=== PATIENT | male | born 1950 | race Caucasian/White ===

== ENCOUNTER 2017-06-12 11:46 | Inpatient (IN) | payer MEDICARE, BC ==
[2017-06-12] MEDS ORDERED: Albuterol/Ipratropium 3.0-0.5 MG/3 ML Neb Soln NEB ONE (11:53)
[2017-06-12] MEDS ORDERED: Sodium Chloride 0.9% 1,000 ML IV ONE (11:54)
[2017-06-12] MEDS ORDERED: methylPREDNISolone Sodium Succinate 125 MG/2 ML SDV IVPUSH ONE (11:54)
--- NOTE | 2017-06-12 12:34 | EDM.PDOC ---
ED HPI GENERAL MEDICAL PROBLEM - General Chief Complaint: Respiratory Problem Stated Complaint: SOB Time Seen by Provider: 06/12/17 12:05 Source of Information: Reports: Patient History Limitations: Reports: No Limitations - History of Present Illness INITIAL COMMENTS - FREE TEXT/NARRATIVE: History of present illness: [67-year-old male presenting with shortness of breath. Patient has a known history of COPD and now is short of breath with a harsh productive cough. Patient indicates that he thinks he might have pneumonia again. Patient's sats on room air are mid 80s with a increased to 92-93% on 3 L of O2] Review of systems: As per history of present illness and below otherwise all systems reviewed and negative. Past medical history: As per history of present illness and as reviewed below otherwise noncontributory. Surgical history: As per history of present illness and as reviewed below otherwise noncontributory. Social history: No reported history of drug or alcohol abuse. Family history: As per history of present illness and as reviewed below otherwise noncontributory. Physical exam: HEENT: Atraumatic, normocephalic, pupils reactive, negative for conjunctival pallor or scleral icterus, mucous membranes moist, throat clear, neck supple, nontender, trachea midline. Lungs: Lung sounds coarse bronchovesicular region and otherwise diminished throughout. Patient with a harsh productive cough of green thick tenacious sputum, otherwise chest nontender. Heart: S1S2, regular, negative for clicks, rubs, or JVD. Abdomen: Soft, nondistended, nontender. Negative for masses or hepatosplenomegaly. Negative for costovertebral tenderness. Pelvis: Stable nontender. Genitourinary: Deferred. Rectal: Deferred. Extremities: Atraumatic, negative for cords or calf pain. Neurovascular unremarkable. Neuro: Awake, alert, oriented. Cranial nerves II through XII unremarkable. Cerebellum unremarkable. Motor and sensory unremarkable throughout. Exam nonfocal. Discussed admission with Dr. Shane Mcknight patient will be admitted to inpatient status secondary to hypoxemia Diagnostics: [CBC, CMP, influenza AB, lactate, chest x-ray, the cultures 2] Therapeutics: [Levaquin 750 mg] Impression: [# 1 hypoxemia] Plan: [Admit to inpatient] Definitive disposition and diagnosis as appropriate pending reevaluation and review of above. - Related Data Allergies Allergy/AdvReac Type Severity Reaction Status Date / Time metronidazole [From Flagyl] Allergy Nausea Verified 06/12/17 11:52 Home Meds: Home Meds Ascorbic Acid [Vitamin C] 1 tab PO DAILY 04/18/14 [History] Aspirin [Halfprin] 1 tab PO DAILY 04/18/14 [History] Cholecalciferol (Vitamin D3) [Vitamin D3] 400 intnl unit PO DAILY 04/18/14 [ History] Dextrin [Fiber] 1 pack PO DAILY 04/18/14 [History] Fish Oil/DHA/EPA [Fish Oil 1,200 MG] 1 tab PO BID 04/18/14 [History] [id number] 149-Hyal [Glucosamine Chondroitin Complx] 1 tab PO DAILY 04/18/14 [History] Multivitamin [Multivitamins] 1 tab PO DAILY 04/18/14 [History] Niacin [Niacin ER] 1 tab PO DAILY 04/18/14 [History] Potassium Gluconate 1 tab PO DAILY 04/18/14 [History] Psyllium with Sucrose [Metamucil] 1 pack PO DAILY 04/18/14 [History] Red Yeast Rice 1 tab PO DAILY 04/18/14 [History] Sertraline [Zoloft] 150 mg PO DAILY 04/18/14 [History] Ubidecarenone [Co Q10] 400 mg PO DAILY 04/18/14 [History] Vitamin B Complex & Vit C No.4 [Super B Complex] 180 mg PO DAILY 04/18/14 [ History] Zinc 1 tab PO DAILY 04/18/14 [History] amLODIPine [Norvasc] 1 tab PO DAILY 04/18/14 [History] atorvaSTATin [Lipitor] 1 tab PO DAILY 04/18/14 [History] busPIRone [Buspar] 15 mg PO BID 04/18/14 [History] Clopidogrel [Plavix] 75 mg PO DAILY #30 tablet 04/19/14 [Rx] Benazepril [Lotensin] 10 mg PO BID 06/12/17 [History] Past Medical History Cardiovascular History: Reports: [place] Respiratory History: Reports: COPD Gastrointestinal History: Reports: Diverticulosis Psychiatric History: Reports: Anxiety, Depression - Infectious Disease History Infectious Disease History: Reports: Chicken Pox, Measles, Mumps - Past Surgical History Cardiovascular Surgical History: Reports: Coronary Artery Stent GI Surgical History: Reports: Appendectomy Social & Family History - Family History Family Medical History: Noncontributory - Tobacco Use Smoking Status *Q: Current Every Day Smoker Years of Tobacco use: 45 Packs/Tins Daily: 1 - Caffeine Use Caffeine Use: Reports: Coffee - Alcohol Use Days Per Week of Alcohol Use: 0 - Recreational Drug Use Recreational Drug Use: No Drug Use in Last 12 Months: No ED ROS GENERAL - Review of Systems Review Of Systems: See Below (See history of present illness) ED EXAM, GENERAL - Physical Exam Exam: See Below (See history of present illness) Course - Vital Signs Last Recorded V/S: Last Vital Signs Temp 37.0 C 06/12/17 11:47 Pulse 107 H 06/12/17 11:47 Resp 34 H 06/12/17 11:47 BP 145/70 H 06/12/17 11:47 Pulse Ox 92 L 06/12/17 11:57 - Orders/Labs/Meds Orders: Active Orders 24 hr Category Date Time Status Admission Status [Patient Status] [ADT] Stat ADT 06/12/17 13:48 Ordered RT Aerosol Therapy [RC] ASDIRECTED Care 06/12/17 11:53 Active Chest 2V [CR] Stat Exams 06/12/17 11:53 Taken CULTURE BLOOD [BC] Stat Lab 06/12/17 13:47 Ordered CULTURE BLOOD [BC] Stat Lab 06/12/17 13:47 Ordered Levofloxacin/Dextrose 5%-Water [Levaquin in D5W 750 MG/ Med 06/12/17 13:47 Ordered 150 ML] 750 mg Premix Bag 1 bag IV ONETIME Blood Culture x2 Reflex Set [OM.PC] Stat Oth 06/12/17 13:47 Ordered Medication Orders Levofloxacin/Dextrose 750 mg/ (Premix) 150 mls @ 100 mls/hr IV ONETIME ONE Stop: 06/12/17 15:16 Labs: Laboratory Tests 06/12/17 06/12/17 06/12/17 Range/Units 12:05 12:05 12:05 WBC 15.07 H (4.0-11.0) K/uL RBC 5.64 (4.50-5.90) M/uL Hgb 17.0 (13.0-17.0) g/dL Hct 52.8 H (38.0-50.0) % MCV 93.6 (80.0-98.0) fL MCH 30.1 (27.0-32.0) pg MCHC 32.2 (31.0-37.0) g/dL RDW Std Deviation 52.3 (28.0-62.0) fl RDW Coeff of Alejandro 15 (11.0-15.0) % Plt Count 173 (150-400) K/uL MPV 10.20 (7.40-12.00) fL Add Manual Diff YES Neutrophils % (Manual) 74 (48.0-80.0) % Band Neutrophils % 8 % Lymphocytes % (Manual) 7 L (16.0-40.0) % Monocytes % (Manual) 10 (0.0-15.0) % Basophils % (Manual) 1 (0.0-1.5) % Nucleated RBC % 0.0 /100WBC Absolute Seg Neuts 11.2 H (1.4-5.7) Band Neutrophils # 1.2 Lymphocytes # (Manual) 1.1 (0.6-2.4) Monocytes # (Manual) 1.5 H (0.0-0.8) Basophils # (Manual) 0.2 H (0.0-0.1) Nucleated RBCs # 0 K/uL Lactate 1.0 (0.20-2.00) mmol/L Sodium 133 L (136-146) mmol/L Potassium 4.3 (3.5-5.1) mmol/L Chloride 96 L (98-110) mmol/L Carbon Dioxide 26 (21-31) mmol/L BUN 14 (6.0-23.0) mg/dL Creatinine 0.8 (0.6-1.5) mg/dL Est Cr Clr Drug Dosing 89.06 mL/min Estimated GFR (MDRD) > 60.0 ml/min Glucose 121 H (60-110) mg/dL Calcium 9.2 (8.8-10.8) mg/dL Total Bilirubin 0.7 (0.1-1.5) mg/dL AST 20 (5-40) IU/L ALT 22 (8-54) IU/L Alkaline Phosphatase 54 (40-150) Total Protein 6.8 (6.0-8.0) g/dL Albumin 3.7 (3.4-4.8) g/dL Globulin 3.1 (2.0-3.5) g/dL Albumin/Globulin Ratio 1.2 L (1.3-2.8) Meds: Medications Generic Name Dose Route Start Last Admin Trade Name Freq PRN Reason Stop Dose Admin Levofloxacin/Dextrose 750 mg/ 150 mls @ 100 mls/hr 06/12/17 13:47 Premix IV 06/12/17 15:16 ONETIME ONE Discontinued Medications Generic Name Dose Route Start Last Admin Trade Name Freq PRN Reason Stop Dose Admin Albuterol/Ipratropium 3 ml 06/12/17 11:53 06/12/17 12:15 Duoneb 3.0-0.5 Mg/3 Ml NEB 06/12/17 11:54 3 ml ONETIME ONE Administration Sodium Chloride 1,000 mls @ 999 mls/hr 06/12/17 11:54 06/12/17 12:15 Normal Saline IV 06/12/17 12:54 999 mls/hr STAT ONE Administration Methylprednisolone Sodium Succinate 125 mg 06/12/17 11:54 06/12/17 12:15 Solu-Medrol IVPUSH 06/12/17 11:55 125 mg ONETIME ONE Administration Departure - Departure Time of Disposition: 13:51 Disposition: Admitted As Inpatient 68 Condition: Good Clinical Impression: Hypoxemia - Discharge Information Forms: ED Department Discharge - My Orders Last 24 Hours: My Active Orders 06/12/17 11:53 RT Aerosol Therapy [RC] ASDIRECTED Chest 2V [CR] Stat 06/12/17 13:47 CULTURE BLOOD [BC] Stat CULTURE BLOOD [BC] Stat Levofloxacin/Dextrose 5%-Water [Levaquin in D5W 750 MG/150 ML] 750 mg Premix Bag 1 bag IV ONETIME Blood Culture x2 Reflex Set [OM.PC] Stat 06/12/17 13:48 Admission Status [Patient Status] [ADT] Stat - Assessment/Plan Last 24 Hours: My Active Orders 06/12/17 11:53 RT Aerosol Therapy [RC] ASDIRECTED Chest 2V [CR] Stat 06/12/17 13:47 CULTURE BLOOD [BC] Stat CULTURE BLOOD [BC] Stat Levofloxacin/Dextrose 5%-Water [Levaquin in D5W 750 MG/150 ML] 750 mg Premix Bag 1 bag IV ONETIME Blood Culture x2 Reflex Set [OM.PC] Stat 06/12/17 13:48 Admission Status [Patient Status] [ADT] Stat
[2017-06-12 12:47] LABS: CHLORIDE,CL 96 mmol/L (98-110); SODIUM,NA 133 mmol/L (136-146)
[2017-06-12] MEDS ORDERED: Levofloxacin/Dextrose 5%-Water 750 MG in Premix Bag 1 BAG IV ONE (13:47)
--- NOTE | 2017-06-12 14:27 | PCM.HP ---
H&P History of Present Illness - General Date of Service: 06/12/17 Admit Problem/Dx: Hypoxia Source of Information: Patient - History of Present Illness Initial Comments - Free Text/Narative: 67-year-old male grained to emergency department with chief complaint of shortness of breath 1 week. Patient states that approximately 1 week ago he began having increased shortness of breath after working outside shoveling snow. He has had associated cough with greenish sputum production, fever, chills, and decreased appetite. States that he had similar episode 4 wks ago but this resolved some but not completely. Does report a history of COPD but does not take home medications. He sees Dr. Mascorro as his PCP. He is a long-term smoker with 45+ pack year history currently smoking 1 pack a day. Currently denies any chest pain, palpitations, syncopal episodes, focal neurologic deficits, nausea, vomiting, or diarrhea. He did not get his influenza vaccine this year. Patient has a history of coronary disease with stent placement will years ago in [place]. He is currently on Plavix and aspirin. He also has a history of hypertension and hyperlipidemia. Emergency department he was found to have leukocytosis of 15,000 normal lactate. CMP was unremarkable. Influenza was negative. Chest x-ray showed likely emphysematous changes with bilateral lower lobe bronchitis. Initially O2 sat 70% on room air improved to 91% on 4 L nasal cannula. Patient was admitted for hypoxia. - Related Data Allergies/Adverse Reactions: Allergies Allergy/AdvReac Type Severity Reaction Status Date / Time metronidazole [From Flagyl] Allergy Nausea Verified 06/12/17 11:52 Home Medications: Home Meds Ascorbic Acid [Vitamin C] 1 tab PO DAILY 04/18/14 [History] Aspirin [Halfprin] 1 tab PO DAILY 04/18/14 [History] Cholecalciferol (Vitamin D3) [Vitamin D3] 400 intnl unit PO DAILY 04/18/14 [ History] Dextrin [Fiber] 1 pack PO DAILY 04/18/14 [History] Fish Oil/DHA/EPA [Fish Oil 1,200 MG] 1 tab PO BID 04/18/14 [History] Zgrruwkr-[id number]-Xhpd 149-Hyal [Glucosamine Chondroitin Complx] 1 tab PO DAILY 04/18/14 [History] Multivitamin [Multivitamins] 1 tab PO DAILY 04/18/14 [History] Niacin [Niacin ER] 1 tab PO DAILY 04/18/14 [History] Potassium Gluconate 1 tab PO DAILY 04/18/14 [History] Psyllium with Sucrose [Metamucil] 1 pack PO DAILY 04/18/14 [History] Red Yeast Rice 1 tab PO DAILY 04/18/14 [History] Sertraline [Zoloft] 150 mg PO BEDTIME 04/18/14 [History] Ubidecarenone [Co Q10] 400 mg PO DAILY 04/18/14 [History] Vitamin B Complex & Vit C No.4 [Super B Complex] 180 mg PO DAILY 04/18/14 [ History] Zinc 1 tab PO DAILY 04/18/14 [History] amLODIPine [Norvasc] 1 tab PO DAILY 04/18/14 [History] atorvaSTATin [Lipitor] 1 tab PO DAILY 04/18/14 [History] busPIRone [Buspar] 15 mg PO BID 04/18/14 [History] Clopidogrel [Plavix] 75 mg PO DAILY #30 tablet 04/19/14 [Rx] Benazepril [Lotensin] 10 mg PO BID 06/12/17 [History] Melatonin 30 mg PO BEDTIME 06/12/17 [History] Nicotine [Nicoderm CQ] 21 mg TRDERM DAILY 06/12/17 [History] Past Medical History Cardiovascular History: Reports: [place] Respiratory History: Reports: COPD Gastrointestinal History: Reports: Diverticulosis Psychiatric History: Reports: Anxiety, Depression - Infectious Disease History Infectious Disease History: Reports: Chicken Pox, Measles, Mumps - Past Surgical History Cardiovascular Surgical History: Reports: Coronary Artery Stent GI Surgical History: Reports: Appendectomy Social & Family History - Family History Family Medical History: Noncontributory - Tobacco Use Smoking Status *Q: Current Every Day Smoker Years of Tobacco use: 45 Packs/Tins Daily: 1 - Caffeine Use Caffeine Use: Reports: Coffee - Alcohol Use Days Per Week of Alcohol Use: 0 - Recreational Drug Use Recreational Drug Use: No Drug Use in Last 12 Months: No H&P Review of Systems - Review of Systems: Review Of Systems: See Below General: Reports: Fever, Chills, Malaise, Fatigue. Denies: Diaphoresis HEENT: Denies: Dysphasia, Headaches, Sore Throat Pulmonary: Reports: Shortness of Breath, Wheezing, Cough, Sputum. Denies: Pleuritic Chest Pain, Hemoptysis Cardiovascular: Denies: Chest Pain, Palpitations, Edema Gastrointestinal: Denies: Abdominal Pain, Black Stool, Bloody Stool, Constipation, Diarrhea, Nausea, Vomiting Genitourinary: Denies: Dysuria, Hematuria Musculoskeletal: Denies: Neck Pain, Leg Pain Skin: Denies: Cyanosis Psychiatric: Denies: Confusion Neurological: Denies: Confusion, Dizziness, Headache Hematologic/Lymphatic: Denies: Anemia Exam - Exam Exam: See Below - Vital Signs Vital Signs: Last Vital Signs Temp 98.6 F 06/12/17 11:47 Pulse 107 H 06/12/17 11:47 Resp 34 H 06/12/17 11:47 BP 145/70 H 06/12/17 11:47 Pulse Ox 92 L 06/12/17 11:57 Weight: 102.6 kg - Exam Quality Assessment: Supplemental Oxygen, DVT Prophylaxis General: Alert, Oriented, Cooperative, Mild Distress HEENT: Conjunctiva Clear, EACs Clear, EOMI, Hearing Intact, Mucosa Moist & [place] , Nares Patent, Normal Nasal Septum, Posterior Pharynx Clear, PERRLA Neck: Supple, Trachea Midline, 2 Lungs: Decreased Breath Sounds, Crackles, Rhonchi, Wheezing Cardiovascular: Regular Rate, Regular Rhythm, Normal S1, Normal S2 GI/Abdominal Exam: Normal Bowel Sounds, Soft, Non-Tender, No Organomegaly, No Distention Back Exam: Normal Inspection Extremities: Normal Inspection, Normal Range of Motion, Non-Tender, No Pedal Edema, Normal Capillary Refill Peripheral Pulses: 2+: Radial (L), Radial (R), Posterior Tibial (L), Posterior Tibial (R), Dorsalis Pedis (L), Dorsalis Pedis (R) Skin: Warm, Dry, Intact Neurological: Cranial Nerves Intact Neuro Extensive - Mental Status: Alert, Oriented x3, Normal Mood/Affect, Normal Cognition Neuro Extensive - Motor, Sensory, Reflexes: CN II-XII Intact Psychiatric: Alert, Normal Affect, Normal Mood - Patient Data Result Diagrams: 06/12/17 12:05 06/12/17 12:05 *Q Meaningful Use (ADM) - VTE *Q VTE Criteria *Q: - Stroke *Q Stroke Criteria *Q: - AMI *Q AMI Criteria *Q: - Problem List (1) CAD in [place] artery SNOMED Code(s): 9303450098392 ICD Code: I25.10 - ATHSCL HEART DISEASE OF [place] CORONARY ARTERY W/O ANG PCTRS Status: Chronic Priority: Medium Current Visit: Yes (2) COPD (chronic obstructive pulmonary disease) SNOMED Code(s): 05915977 ICD Code: J44.9 - CHRONIC OBSTRUCTIVE PULMONARY DISEASE, UNSPECIFIED Status : Chronic Priority: High Current Visit: Yes Qualifiers: COPD type: unspecified COPD Qualified Code(s): J44.9 - Chronic obstructive pulmonary disease, unspecified (3) Hypertension SNOMED Code(s): 72349094 ICD Code: I10 - ESSENTIAL (PRIMARY) HYPERTENSION Status: Acute Priority: High Current Visit: Yes Qualifiers: Hypertension type: essential hypertension Qualified Code(s): I10 - Essential (primary) hypertension (4) Hypoxemia SNOMED Code(s): 536525705 ICD Code: R09.02 - HYPOXEMIA Status: Acute Priority: High Current Visit : Yes Problem List Initiated/Reviewed/Updated: Yes Orders Last 24hrs: Active Orders 24 hr Category Date Time Status CULTURE SPUTUM + SMEAR [RM] Stat Lab 06/12/17 14:12 Received Medication Orders Levofloxacin/Dextrose 750 mg/ (Premix) 150 mls @ 100 mls/hr IV ONETIME ONE Stop: 06/12/17 15:16 Last Admin: 06/12/17 14:15 Dose: 100 mls/hr Assessment/Plan Comment:: 67-year-old male admitted 06/12/17 for hypoxia with past medical history of COPD , CAD with stent on Plavix and aspirin, hypertension, hyperlipidemia. Hypoxia: Most likely multifactorial from bronchitis greater than 4 weeks and COPD. He does have leukocytosis of 15 K. Takes no steroids or any medications for his COPD. Blood cultures taken in ER. Will treat with Levaquin 750 every 24 , duo nebs every 4 hours, IV Solu-Medrol 125 mg every 6 hours. Influenza was negative. CAD with stent: Place on telemetry, continue home Plavix and aspirin. Hypertension: Stable resume home medications Hyperlipidemia: Stable resume home meds. VTE proph: Heparin, SCD Dispo: 2-[address] Mascorro PCP
--- NOTE | 2017-06-12 14:56 | CR ---
EXAM DATE: 06/12/17 PATIENT'S AGE: 67 Patient: VERONICA ARIAS Facility: [place], [place] Site . Site : 1950 Study: XRay Chest [id number] 12:57:29 PM Ordering Physician: Doctor Garza Final Report: INDICATION: Shortness of breath TECHNIQUE: Chest radiograph 2 views COMPARISON: None FINDINGS: Relative lucency to the upper lung zones, suggesting possible emphysematous changes. Mild degree of peribronchial thickening is suspected in the bilateral lower lobes. No airspace consolidation, abnormal pleural thickening, or pleural effusion. Heart and mediastinal contours are within normal limits. Prominent bilateral perihilar pulmonary vessels, suggesting possible pulmonary hypertension. IMPRESSION: 1. Likely emphysematous changes with bilateral lower lobe bronchitis. Dictated by Gurpreet Martinez MD @ 06/12/2017 1:23:58 PM Dictated by: Gurpreet Martinez MD @ 06/12/2017 13:24:06 (Electronic Signature) Report Signed by Proxy. MTDJenise
[2017-06-12] MEDS ORDERED: Ondansetron 4 MG Tab.DIS PO PRN (15:16)
[2017-06-12] MEDS ORDERED: Acetaminophen 325 MG Tab PO PRN (15:16)
[2017-06-12] MEDS ORDERED: Nicotine 7 MG/24 Hr Patch TRDERM SCH (15:30)
[2017-06-12] MEDS: Heparin Sodium 5,000 Units/ML Vial SUBCUT SCH (16:11)
[2017-06-12] MEDS: methylPREDNISolone Sodium Succinate 125 MG/2 ML SDV IV SCH (17:30)
[2017-06-12] MEDS: Albuterol/Ipratropium 3.0-0.5 MG/3 ML Neb Soln NEB PRN (17:30)
[2017-06-12] MEDS: diphenhydrAMINE 50 MG/ML SDV IVPUSH PRN (17:30)
[2017-06-12] MEDS: Benazepril 10 MG Tab PO SCH (21:02)
[2017-06-12] MEDS: Melatonin 3 MG Tab PO SCH (21:03)
[2017-06-12] MEDS: busPIRone 5 MG Tab PO SCH (21:03)
[2017-06-12] MEDS: Sertraline 50 MG Tab PO SCH (21:04)
[2017-06-12] MEDS: Niacin 500 MG Tab PO SCH (21:09)
[2017-06-13] MEDS: Heparin Sodium 5,000 Units/ML Vial SUBCUT SCH ×4 (00:10→22:54)
[2017-06-13] MEDS: methylPREDNISolone Sodium Succinate 125 MG/2 ML SDV IV SCH ×3 (00:12→12:13)
[2017-06-13] MEDS: diphenhydrAMINE 50 MG/ML SDV IVPUSH PRN ×4 (00:16→22:54)
[2017-06-13] MEDS: Albuterol/Ipratropium 3.0-0.5 MG/3 ML Neb Soln NEB PRN ×2 (00:20→07:16)
[2017-06-13 06:07] LABS: CHLORIDE,CL 98 mmol/L (98-110); SODIUM,NA 135 mmol/L (136-146)
--- NOTE | 2017-06-13 08:39 | PCM.PN ---
- General Info Date of Service: 06/13/17 Admission Dx/Problem (Free Text): Hypoxia Subjective Update: Patient states his breathing has improved significantly since yesterday. Sob, pleuritis, cough and malaise were his main complaints and all have improved. He smokes 1 ppd and has 40 pack year smoking history. He states he has history of mild copd but has never been hospitalized for it and denies any recurrent clinic visits for copd exacerbation. He does not take any inhalers at home. He denies any improvement of symptoms with nebulizer treatments. Functional Status: Reports: Pain Controlled, Tolerating Diet, Ambulating, Urinating - Review of Systems General: Reports: No Symptoms HEENT: Reports: Sore Throat Pulmonary: Reports: Shortness of Breath, Cough Cardiovascular: Reports: No Symptoms Gastrointestinal: Reports: No Symptoms Genitourinary: Reports: No Symptoms Musculoskeletal: Reports: No Symptoms Skin: Reports: No Symptoms Neurological: Reports: No Symptoms Psychiatric: Reports: No Symptoms - Patient Data Vitals - Most Recent: Last Vital Signs Temp 36.9 C 06/13/17 03:00 Pulse 70 06/13/17 03:00 Resp 18 06/13/17 03:00 BP 120/64 06/13/17 03:00 Pulse Ox 92 L 06/13/17 03:00 Weight - Most Recent: 102.6 kg I&O - Last 24 Hours: Intake & Output 06/12/17 06/13/17 06/13/17 22:59 06:59 14:59 Intake Total 0 740 Output Total 350 1150 Balance -350 -410 Lab Results Last 24 Hours: Laboratory Results - last 24 hr 06/13/17 06/13/17 Range/Units 05:23 05:23 WBC 11.75 H (4.0-11.0) K/uL RBC 5.63 (4.50-5.90) M/uL Hgb 16.8 (13.0-17.0) g/dL Hct 53.0 H (38.0-50.0) % MCV 94.1 (80.0-98.0) fL MCH 29.8 (27.0-32.0) pg MCHC 31.7 (31.0-37.0) g/dL RDW Std Deviation 52.0 (28.0-62.0) fl RDW Coeff of Alejandro 15 (11.0-15.0) % Plt Count 190 (150-400) K/uL MPV 10.90 (7.40-12.00) fL Nucleated RBC % 0.0 /100WBC Nucleated RBCs # 0 K/uL Sodium 135 L (136-146) mmol/L Potassium 5.1 (3.5-5.1) mmol/L Chloride 98 (98-110) mmol/L Carbon Dioxide 29 (21-31) mmol/L BUN 17 (6.0-23.0) mg/dL Creatinine 0.7 (0.6-1.5) mg/dL Est Cr Clr Drug Dosing 101.79 mL/min Estimated GFR (MDRD) > 60.0 ml/min Glucose 160 H (60-110) mg/dL Calcium 8.6 L (8.8-10.8) mg/dL [place] Results Last 24 Hours: Microbiology 06/12/17 14:12 Gram Stain - Preliminary Sputum - Expectorated Med Orders - Current: Current Medications Acetaminophen (Tylenol) 650 mg PO Q4H PRN PRN Reason: Pain (Mild 1-3)/fever Albuterol/Ipratropium (Duoneb 3.0-0.5 Mg/3 Ml) 3 ml NEB Q4HRRT PRN PRN Reason: Shortness Of Breath/wheezing Last Admin: 06/13/17 07:16 Dose: 3 ml Amlodipine Besylate (Norvasc) 2.5 mg PO DAILY [facility] Aspirin (Halfprin) 81 mg PO DAILY [facility] Atorvastatin Calcium (Lipitor) 10 mg PO DAILY [facility] Benazepril HCl (Lotensin) 10 mg PO BID [facility] Last Admin: 06/12/17 21:02 Dose: 10 mg Buspirone HCl (Buspar) 15 mg PO BID [facility] Last Admin: 06/12/17 21:03 Dose: 15 mg Clopidogrel Bisulfate (Plavix) 75 mg PO DAILY [facility] Diphenhydramine HCl (Benadryl) 25 mg IVPUSH Q4H PRN PRN Reason: Rash Last Admin: 06/13/17 07:19 Dose: 25 mg Heparin Sodium (Porcine) (Heparin Sodium) 5,000 units SUBCUT Q8H [facility] Last Admin: 06/13/17 06:52 Dose: 5,000 units Levofloxacin/Dextrose 750 mg/ (Premix) 150 mls @ 100 mls/hr IV Q24H [facility] Melatonin (Melatonin) 3 mg PO BEDTIME [facility] Last Admin: 06/12/17 21:03 Dose: 3 mg Methylprednisolone Sodium Succinate (Solu-Medrol) 125 mg IV Q6H [facility] Last Admin: 06/13/17 06:53 Dose: 125 mg Niacin (Niacin) 500 mg PO BEDTIME [facility] Last Admin: 06/12/17 21:09 Dose: 500 mg Nicotine (Habitrol) 21 mg TRDERM DAILY [facility] Ondansetron HCl (Zofran Odt) 4 mg PO Q4H PRN PRN Reason: nausea, able to take PO Sertraline HCl (Zoloft) 150 mg PO BEDTIME [facility] Last Admin: 06/12/17 21:04 Dose: 150 mg Discontinued Medications Albuterol/Ipratropium (Duoneb 3.0-0.5 Mg/3 Ml) 3 ml NEB ONETIME ONE Stop: 06/12/17 11:54 Last Admin: 06/12/17 12:15 Dose: 3 ml Sodium Chloride (Normal Saline) 1,000 mls @ 999 mls/hr IV STAT ONE Stop: 06/12/17 12:54 Last Admin: 06/12/17 12:15 Dose: 999 mls/hr Levofloxacin/Dextrose 750 mg/ (Premix) 150 mls @ 100 mls/hr IV ONETIME ONE Stop: 06/12/17 15:16 Last Admin: 06/12/17 14:15 Dose: 100 mls/hr Methylprednisolone Sodium Succinate (Solu-Medrol) 125 mg IVPUSH ONETIME ONE Stop: 06/12/17 11:55 Last Admin: 06/12/17 12:15 Dose: 125 mg Nicotine (Habitrol) 21 mg TRDERM DAILY [facility] Last Admin: 06/12/17 16:12 Dose: Not Given - Exam Quality Assessment: Supplemental Oxygen General: Alert, Oriented HEENT: Mucous Membr. Moist/[place] Neck: Supple, No JVD Lungs: Normal Respiratory Effort, Decreased Breath Sounds (diminished BL mid and lower lungs with poor air entry, scattered wheezing at bl upper lobes ) Cardiovascular: Regular Rate, Regular Rhythm GI/Abdominal Exam: Normal Bowel Sounds, Soft, Non-Tender, No Distention Back Exam: Normal Inspection Extremities: Normal Inspection, No Pedal Edema, Normal Capillary Refill Peripheral Pulses: 2+: Radial (L), Radial (R) Skin: Dry Neurological: No New Focal Deficit - Problem List Review Problem List Initiated/Reviewed/Updated: Yes - Plan Plan:: 67-year-old male with past medical history of COPD, CAD s/p PCI, hypertension, hyperlipidemia admitted 06/12/17 for Hypoxia likely secondary to Acute Bronchitis and COPD exacerbation #Hypoxia -likely multifactorial secondary to Acute Bronchitis and COPD exacerbation -currently on 3L O2 -on Levaquin IV for Acute Bronchitis -on Solumedrol IV for COPD exacerbation #Acute Bronchitis, on Levaquin IV, improving -BL bronchial thickening on CXR -presumed source of initial leukocytosis present prior to iv steroids plan: -switch Levaquin IV to PO #COPD Exacerbation, improving, on Solumedrol IV & Duonebs -wheezing still present on exam plan: -DC Solumedrol IV and start Prednisone PO -continue Duonebs PRN #CAD s/p PCI -resumed home plavix and ASA -DC telemety #Hypertension -resume home medications #Hyperlipidemia -resume home meds VTE proph: Heparin, SCD Dispo: 1-[address] Mascorro PCP
[2017-06-13] MEDS: Aspirin 81 MG Tab.EC PO SCH (08:41)
[2017-06-13] MEDS: Nicotine 21 MG/24 Hr Patch TRDERM SCH (08:41)
[2017-06-13] MEDS: busPIRone 5 MG Tab PO SCH ×2 (08:41→20:18)
[2017-06-13] MEDS: atorvaSTATin 10 MG Tab PO SCH (08:42)
[2017-06-13] MEDS: amLODIPine 2.5 MG Tab PO SCH (08:42)
[2017-06-13] MEDS: Benazepril 10 MG Tab PO SCH ×2 (08:42→20:19)
[2017-06-13] MEDS: Clopidogrel 75 MG Tab PO SCH (08:42)
[2017-06-13] MEDS ORDERED: Levofloxacin/Dextrose 5%-Water 750 MG in Premix Bag 1 BAG IV SCH (13:00)
[2017-06-13] MEDS: Sertraline 50 MG Tab PO SCH (20:18)
[2017-06-13] MEDS: Niacin 500 MG Tab PO SCH (20:18)
[2017-06-13] MEDS: Melatonin 3 MG Tab PO SCH (20:18)
[2017-06-14 04:58] LABS: CHLORIDE,CL 101 mmol/L (98-110); SODIUM,NA 140 mmol/L (136-146)
[2017-06-14] MEDS: Heparin Sodium 5,000 Units/ML Vial SUBCUT SCH ×2 (06:37→14:35)
[2017-06-14] MEDS: Albuterol/Ipratropium 3.0-0.5 MG/3 ML Neb Soln NEB PRN (06:43)
[2017-06-14] MEDS: busPIRone 5 MG Tab PO SCH ×2 (08:02→21:00)
[2017-06-14] MEDS: atorvaSTATin 10 MG Tab PO SCH (08:03)
[2017-06-14] MEDS: amLODIPine 2.5 MG Tab PO SCH (08:03)
[2017-06-14] MEDS: Benazepril 10 MG Tab PO SCH (08:03)
[2017-06-14] MEDS: Clopidogrel 75 MG Tab PO SCH (08:03)
[2017-06-14] MEDS: Nicotine 21 MG/24 Hr Patch TRDERM SCH (08:03)
[2017-06-14] MEDS: Aspirin 81 MG Tab.EC PO SCH (08:03)
[2017-06-14] MEDS: predniSONE 20 MG Tab PO SCH (11:04)
--- NOTE | 2017-06-14 11:04 | PCM.PN ---
- General Info Date of Service: 06/14/17 Admission Dx/Problem (Free Text): Hypoxia Subjective Update: Patient continues to need supplemental O2. He slept with it overnight and has it on now. Otherwise he is doing well and states his breathing and cough are improving. Functional Status: Reports: Pain Controlled, Tolerating Diet, Ambulating, Urinating - Review of Systems General: Reports: No Symptoms HEENT: Reports: No Symptoms Pulmonary: Reports: Shortness of Breath, Cough Cardiovascular: Reports: No Symptoms Gastrointestinal: Reports: No Symptoms Genitourinary: Reports: No Symptoms Musculoskeletal: Reports: No Symptoms Skin: Reports: No Symptoms Neurological: Reports: No Symptoms Psychiatric: Reports: No Symptoms - Patient Data Vitals - Most Recent: Last Vital Signs Temp 37.1 C 06/14/17 08:00 Pulse 83 06/14/17 08:00 Resp 20 06/14/17 08:00 BP 126/60 06/14/17 08:03 Pulse Ox 90 L 06/14/17 08:00 Weight - Most Recent: 102 kg I&O - Last 24 Hours: Intake & Output 06/13/17 06/14/17 06/14/17 22:59 06:59 14:59 Intake Total 750 700 Output Total 875 400 Balance -125 300 Lab Results Last 24 Hours: Laboratory Results - last 24 hr 06/14/17 06/14/17 Range/Units 04:24 04:24 WBC 18.83 H (4.0-11.0) K/uL RBC 5.21 (4.50-5.90) M/uL Hgb 15.2 (13.0-17.0) g/dL Hct 50.1 H (38.0-50.0) % MCV 96.2 (80.0-98.0) fL MCH 29.2 (27.0-32.0) pg MCHC 30.3 L (31.0-37.0) g/dL RDW Std Deviation 52.7 (28.0-62.0) fl RDW Coeff of Alejandro 15 (11.0-15.0) % Plt Count 196 (150-400) K/uL MPV 10.60 (7.40-12.00) fL Nucleated RBC % 0.0 /100WBC Nucleated RBCs # 0 K/uL Sodium 140 (136-146) mmol/L Potassium 5.8 H (3.5-5.1) mmol/L Chloride 101 (98-110) mmol/L Carbon Dioxide 34 H (21-31) mmol/L BUN 22 (6.0-23.0) mg/dL Creatinine 0.7 (0.6-1.5) mg/dL Est Cr Clr Drug Dosing 101.79 mL/min Estimated GFR (MDRD) > 60.0 ml/min Glucose 136 H (60-110) mg/dL Calcium 8.7 L (8.8-10.8) mg/dL Dipak Results Last 24 Hours: Microbiology 06/12/17 14:12 Gram Stain - Final Sputum - Expectorated Sputum Culture - Final Normal Respiratory Pauline Med Orders - Current: Current Medications Acetaminophen (Tylenol) 650 mg PO Q4H PRN PRN Reason: Pain (Mild 1-3)/fever Albuterol/Ipratropium (Duoneb 3.0-0.5 Mg/3 Ml) 3 ml NEB Q4HRRT PRN PRN Reason: Shortness Of Breath/wheezing Last Admin: 06/14/17 06:43 Dose: 3 ml Amlodipine Besylate (Norvasc) 2.5 mg PO DAILY [facility] Last Admin: 06/14/17 08:03 Dose: 2.5 mg Aspirin (Halfprin) 81 mg PO DAILY [facility] Last Admin: 06/14/17 08:03 Dose: 81 mg Atorvastatin Calcium (Lipitor) 10 mg PO DAILY [facility] Last Admin: 06/14/17 08:03 Dose: 10 mg Buspirone HCl (Buspar) 15 mg PO BID [facility] Last Admin: 06/14/17 08:02 Dose: 15 mg Clopidogrel Bisulfate (Plavix) 75 mg PO DAILY [facility] Last Admin: 06/14/17 08:03 Dose: 75 mg Diphenhydramine HCl (Benadryl) 25 mg IVPUSH Q4H PRN PRN Reason: Rash Last Admin: 06/13/17 22:54 Dose: 25 mg Heparin Sodium (Porcine) (Heparin Sodium) 5,000 units SUBCUT Q8H [facility] Last Admin: 06/14/17 06:37 Dose: 5,000 units Levofloxacin (Levaquin) 750 mg PO DAILY ONE Stop: 06/14/17 13:01 Melatonin (Melatonin) 3 mg PO BEDTIME [facility] Last Admin: 06/13/17 20:18 Dose: 3 mg Niacin (Niacin) 500 mg PO BEDTIME [facility] Last Admin: 06/13/17 20:18 Dose: 500 mg Nicotine (Habitrol) 21 mg TRDERM DAILY [facility] Last Admin: 06/14/17 08:03 Dose: 21 mg Ondansetron HCl (Zofran Odt) 4 mg PO Q4H PRN PRN Reason: nausea, able to take PO Sertraline HCl (Zoloft) 150 mg PO BEDTIME [facility] Last Admin: 06/13/17 20:18 Dose: 150 mg Discontinued Medications Albuterol/Ipratropium (Duoneb 3.0-0.5 Mg/3 Ml) 3 ml NEB ONETIME ONE Stop: 06/12/17 11:54 Last Admin: 06/12/17 12:15 Dose: 3 ml Benazepril HCl (Lotensin) 10 mg PO BID [facility] Last Admin: 06/14/17 08:03 Dose: 10 mg Sodium Chloride (Normal Saline) 1,000 mls @ 999 mls/hr IV STAT ONE Stop: 06/12/17 12:54 Last Admin: 06/12/17 12:15 Dose: 999 mls/hr Levofloxacin/Dextrose 750 mg/ (Premix) 150 mls @ 100 mls/hr IV ONETIME ONE Stop: 06/12/17 15:16 Last Admin: 06/12/17 14:15 Dose: 100 mls/hr Levofloxacin/Dextrose 750 mg/ (Premix) 150 mls @ 100 mls/hr IV Q24H [facility] Last Admin: 06/13/17 12:13 Dose: 100 mls/hr Methylprednisolone Sodium Succinate (Solu-Medrol) 125 mg IVPUSH ONETIME ONE Stop: 06/12/17 11:55 Last Admin: 06/12/17 12:15 Dose: 125 mg Methylprednisolone Sodium Succinate (Solu-Medrol) 125 mg IV Q6H [facility] Last Admin: 06/13/17 12:13 Dose: 125 mg Nicotine (Habitrol) 21 mg TRDERM DAILY [facility] Last Admin: 06/12/17 16:12 Dose: Not Given - Exam Quality Assessment: Supplemental Oxygen General: Alert, Oriented, Cooperative, No Acute Distress HEENT: Pupils Equal, Pupils Reactive Neck: Supple, No JVD Lungs: Decreased Breath Sounds, Crackles (diffuse bl coarse crackles ), Wheezing (diffuse, all [place] ) Cardiovascular: Regular Rate, Regular Rhythm GI/Abdominal Exam: Normal Bowel Sounds, Soft, Non-Tender Back Exam: Normal Inspection Extremities: Normal Inspection, No Pedal Edema Neurological: No New Focal Deficit Psy/Mental Status: Alert, Normal Affect, Normal Mood - Problem List Review Problem List Initiated/Reviewed/Updated: Yes - My Orders Last 24 Hours: My Active Orders 06/14/17 10:53 POTASSIUM,K [CHEM] Routine 06/14/17 11:00 predniSONE 40 mg PO DAILY - Plan Plan:: 67-year-old male with past medical history of COPD, CAD s/p PCI, hypertension, hyperlipidemia admitted 06/12/17 for Hypoxia likely secondary to Acute Bronchitis and COPD exacerbation #Hypoxia -likely multifactorial secondary to Acute Bronchitis and COPD exacerbation -currently on 3L O2, attemped to wean but SpO2 decreased down to 79% plan: -continue Levaquin PO for Acute Bronchitis -continue Prednisone PO and Duonebs for COPD exacerbation -continue to wean O2 #Acute Bronchitis, on Levaquin IV, improving -BL bronchial thickening on CXR -presumed source of initial leukocytosis present prior to iv steroids -continue Levaquin PO #COPD Exacerbation, improving, on Solumedrol IV & Duonebs -diffuse wheezing still present on exam plan: -DC Solumedrol IV and start Prednisone PO -continue Duonebs PRN #Hyperkalemia -repeat K to r/o lab error -hold home Benzepril -administer Lasix 40 mg IV followed by IV NS 500 ml bolus -repeat K in evening and administer Lasix 40 mg IV second dose if K still significantly elevated #Hypertension -resume home medications -hold Benzepril due to hyperkalemia #Hyperlipidemia -resume home meds #CAD s/p PCI -on home plavix and ASA VTE proph: Heparin, SCD Dispo: 1-[address] Mascorro PCP
[2017-06-14] MEDS ORDERED: Furosemide 40 MG/4 ML VIAL IVPUSH ONE ×2 (11:37→19:00)
[2017-06-14] MEDS ORDERED: Sodium Chloride 0.9% 500 ML IV ONE (11:39)
[2017-06-14] MEDS ORDERED: Levofloxacin 250 MG Tab PO ONE (13:00)
[2017-06-14] MEDS: Sertraline 50 MG Tab PO SCH (20:59)
[2017-06-14] MEDS: Melatonin 3 MG Tab PO SCH (21:00)
[2017-06-14] MEDS: Niacin 500 MG Tab PO SCH (21:52)
[2017-06-15] MEDS: Heparin Sodium 5,000 Units/ML Vial SUBCUT SCH ×2 (00:22→06:51)
[2017-06-15 06:04] LABS: CHLORIDE,CL 99 mmol/L (98-110); SODIUM,NA 143 mmol/L (136-146)
[2017-06-15] MEDS: predniSONE 20 MG Tab PO SCH (09:37)
[2017-06-15] MEDS: amLODIPine 2.5 MG Tab PO SCH (09:38)
[2017-06-15] MEDS: Nicotine 21 MG/24 Hr Patch TRDERM SCH (09:38)
[2017-06-15] MEDS: Aspirin 81 MG Tab.EC PO SCH (09:38)
[2017-06-15] MEDS: atorvaSTATin 10 MG Tab PO SCH (09:38)
[2017-06-15] MEDS: busPIRone 5 MG Tab PO SCH (09:38)
[2017-06-15] MEDS: Clopidogrel 75 MG Tab PO SCH (09:38)
[2017-06-15 12:23] VITALS: BP 143/85
--- NOTE | 2017-06-15 13:03 | PCM.DCSUM1 ---
Discharge Summary - Hospital Course Free Text/Narrative:: 67-year-old male with past medical history of COPD, CAD s/p PCI, hypertension, hyperlipidemia admitted 06/12/17 for Hypoxia likely secondary to Acute Bronchitis and COPD exacerbation. This was his first COPD exacerbation. He was treated with antibiotics, steroids and inhalers. He was discharged home on when hypoxia resolved. He was discharge home with antibiotics and Inhalers. He is to f/u with his PCP within 2 weeks. #Acute Bronchitis -BL bronchial thickening on CXR -presumed source of initial leukocytosis present prior to iv steroids -discharged home on Levaquin PO for 1 day to complete 5 day course #COPD Exacerbation -treated with steroids and duonebs -discharged on Prednisone 40 mg PO QD for 5 days -discharged on Ventolin 2 puffs [id number] scheduled for 2 weeks then swithc to PRN for SOB -discharged on Advair 1 puff BID -f/u with PCP #Hypoxia -likely multifactorial secondary to Acute Bronchitis and COPD exacerbation -resolved #Hyperkalemia -corrected #Hypertension -resume home medications #Hyperlipidemia -resume home meds #CAD s/p PCI -resume home plavix and ASA - Discharge Data Discharge Date: 06/15/17 Discharge Disposition: Home, Self-Care 01 Condition: Good - Patient Instructions Diet: Usual Diet as Tolerated Activity: As Tolerated Notify Provider of: Fever, Nausea and/or Vomiting - Discharge Plan Prescriptions/Med Rec: Albuterol [Ventolin HFA] 2 puff INH Q6H #1 inhaler Fluticasone/Salmeterol [Advair 250-50 Diskus] 2 puff IH BID #1 disk.w.dev Levofloxacin 750 mg PO DAILY 1 Days #1 tablet Prednisone [IJD: predniSONE] 40 mg PO DAILY #5 tablet Home Medications: Home Meds Ascorbic Acid [Vitamin C] 1 tab PO DAILY 04/18/14 [History] Aspirin [Halfprin] 1 tab PO DAILY 04/18/14 [History] Cholecalciferol (Vitamin D3) [Vitamin D3] 400 intnl unit PO DAILY 04/18/14 [ History] Dextrin [Fiber] 1 pack PO DAILY 04/18/14 [History] Fish Oil/DHA/EPA [Fish Oil 1,200 MG] 1 tab PO BID 04/18/14 [History] Wuscupne-Yrpibpd-Qhxx 149-Hyal [Glucosamine Chondroitin Complx] 1 tab PO DAILY 04/18/14 [History] Multivitamin [Multivitamins] 1 tab PO DAILY 04/18/14 [History] Niacin [Niacin ER] 1 tab PO DAILY 04/18/14 [History] Potassium Gluconate 1 tab PO DAILY 04/18/14 [History] Psyllium with Sucrose [Metamucil] 1 pack PO DAILY 04/18/14 [History] Red Yeast Rice 1 tab PO DAILY 04/18/14 [History] Sertraline [Zoloft] 150 mg PO BEDTIME 04/18/14 [History] Ubidecarenone [Co Q10] 400 mg PO DAILY 04/18/14 [History] Vitamin B Complex & Vit C No.4 [Super B Complex] 180 mg PO DAILY 04/18/14 [ History] Zinc 1 tab PO DAILY 04/18/14 [History] amLODIPine [Norvasc] 1 tab PO DAILY 04/18/14 [History] atorvaSTATin [Lipitor] 1 tab PO DAILY 04/18/14 [History] busPIRone [Buspar] 15 mg PO BID 04/18/14 [History] Clopidogrel [Plavix] 75 mg PO DAILY #30 tablet 04/19/14 [Rx] Benazepril [Lotensin] 10 mg PO BID 06/12/17 [History] Melatonin 30 mg PO BEDTIME 06/12/17 [History] Nicotine [Nicoderm CQ] 21 mg TRDERM DAILY 06/12/17 [History] Albuterol [Ventolin HFA] 2 puff INH Q6H #1 inhaler 06/15/17 [Rx] Fluticasone/Salmeterol [Advair 250-50 Diskus] 2 puff IH BID #1 disk.w.dev [Rx] Levofloxacin 750 mg PO DAILY 1 Days #1 tablet 06/15/17 [Rx] Prednisone [IJD: predniSONE] 40 mg PO DAILY #5 tablet 06/15/17 [Rx] Patient Handouts: Chronic Obstructive Pulmonary Disease Exacerbation, Easy-to- Read, Albuterol inhalation powder, Fluticasone; Salmeterol inhalation powder, Levofloxacin tablets, Prednisone tablets Referrals: Oli Mascorro MD [Primary Care Provider] - 06/21/17 10:15 am - Review of Systems General: Reports: No Symptoms HEENT: Reports: No Symptoms Pulmonary: Reports: No Symptoms Cardiovascular: Reports: No Symptoms Gastrointestinal: Reports: No Symptoms Genitourinary: Reports: No Symptoms Musculoskeletal: Reports: No Symptoms Skin: Reports: No Symptoms Neurological: Reports: No Symptoms Psychiatric: Reports: No Symptoms - Patient Data Vitals - Most Recent: Last Vital Signs Temp 35.6 C 06/15/17 12:00 Pulse 76 06/15/17 12:00 Resp 22 H 06/15/17 12:00 BP 143/85 H 06/15/17 12:00 Pulse Ox 92 L 06/15/17 12:00 Weight - Most Recent: 102 kg I&O - Last 24 hours: Intake & Output 06/14/17 06/15/17 06/15/17 22:59 06:59 14:59 Intake Total 2600 500 Output Total 3100 1900 Balance -500 -1400 Lab Results - Last 24 hrs: Laboratory Results - last 24 hr 06/14/17 06/14/17 06/15/17 Range/Units 14:50 16:50 05:29 WBC 14.27 H (4.0-11.0) K/uL RBC 5.36 (4.50-5.90) M/uL Hgb 15.8 (13.0-17.0) g/dL Hct 51.0 H (38.0-50.0) % MCV 95.1 (80.0-98.0) fL MCH 29.5 (27.0-32.0) pg MCHC 31.0 (31.0-37.0) g/dL RDW Std Deviation 52.3 (28.0-62.0) fl RDW Coeff of Alejandro 15 (11.0-15.0) % Plt Count 207 (150-400) K/uL MPV 10.50 (7.40-12.00) fL Nucleated RBC % 0.0 /100WBC Nucleated RBCs # 0 K/uL Sodium (136-146) mmol/L Potassium 4.9 5.3 H (3.5-5.1) mmol/L Chloride (98-110) mmol/L Carbon Dioxide (21-31) mmol/L BUN (6.0-23.0) mg/dL Creatinine (0.6-1.5) mg/dL Est Cr Clr Drug Dosing mL/min Estimated GFR (MDRD) ml/min Glucose (60-110) mg/dL Calcium (8.8-10.8) mg/dL 06/15/17 Range/Units 05:29 WBC (4.0-11.0) K/uL RBC (4.50-5.90) M/uL Hgb (13.0-17.0) g/dL Hct (38.0-50.0) % MCV (80.0-98.0) fL MCH (27.0-32.0) pg MCHC (31.0-37.0) g/dL RDW Std Deviation (28.0-62.0) fl RDW Coeff of Alejandro (11.0-15.0) % Plt Count (150-400) K/uL MPV (7.40-12.00) fL Nucleated RBC % /100WBC Nucleated RBCs # K/uL Sodium 143 (136-146) mmol/L Potassium 4.6 (3.5-5.1) mmol/L Chloride 99 (98-110) mmol/L Carbon Dioxide 37 H (21-31) mmol/L BUN 25 H (6.0-23.0) mg/dL Creatinine 0.7 (0.6-1.5) mg/dL Est Cr Clr Drug Dosing 102.16 mL/min Estimated GFR (MDRD) > 60.0 ml/min Glucose 88 (60-110) mg/dL Calcium 9.0 (8.8-10.8) mg/dL [id number] Results - Last 24 hrs: Microbiology 06/12/17 14:12 Gram Stain - Final Sputum - Expectorated Sputum Culture - Final Normal Respiratory Pauline Med Orders - Current: Current Medications Acetaminophen (Tylenol) 650 mg PO Q4H PRN PRN Reason: Pain (Mild 1-3)/fever Albuterol/Ipratropium (Duoneb 3.0-0.5 Mg/3 Ml) 3 ml NEB Q4HRRT PRN PRN Reason: Shortness Of Breath/wheezing Last Admin: 06/14/17 06:43 Dose: 3 ml Amlodipine Besylate (Norvasc) 2.5 mg PO DAILY [facility] Last Admin: 06/15/17 09:38 Dose: 2.5 mg Aspirin (Halfprin) 81 mg PO DAILY [facility] Last Admin: 06/15/17 09:38 Dose: 81 mg Atorvastatin Calcium (Lipitor) 10 mg PO DAILY [facility] Last Admin: 06/15/17 09:38 Dose: 10 mg Buspirone HCl (Buspar) 15 mg PO BID [facility] Last Admin: 06/15/17 09:38 Dose: 15 mg Clopidogrel Bisulfate (Plavix) 75 mg PO DAILY [facility] Last Admin: 06/15/17 09:38 Dose: 75 mg Diphenhydramine HCl (Benadryl) 25 mg IVPUSH Q4H PRN PRN Reason: Rash Last Admin: 06/13/17 22:54 Dose: 25 mg Heparin Sodium (Porcine) (Heparin Sodium) 5,000 units SUBCUT Q8H [facility] Last Admin: 06/15/17 06:51 Dose: 5,000 units Melatonin (Melatonin) 3 mg PO BEDTIME [facility] Last Admin: 06/14/17 21:00 Dose: 3 mg Niacin (Niacin) 500 mg PO BEDTIME [facility] Last Admin: 06/14/17 21:52 Dose: 500 mg Nicotine (Habitrol) 21 mg TRDERM DAILY [facility] Last Admin: 06/15/17 09:38 Dose: 21 mg Ondansetron HCl (Zofran Odt) 4 mg PO Q4H PRN PRN Reason: nausea, able to take PO Prednisone (Prednisone) 40 mg PO DAILY [facility] Last Admin: 06/15/17 09:37 Dose: 40 mg Sertraline HCl (Zoloft) 150 mg PO BEDTIME [facility] Last Admin: 06/14/17 20:59 Dose: 150 mg Discontinued Medications Albuterol/Ipratropium (Duoneb 3.0-0.5 Mg/3 Ml) 3 ml NEB ONETIME ONE Stop: 06/12/17 11:54 Last Admin: 06/12/17 12:15 Dose: 3 ml Benazepril HCl (Lotensin) 10 mg PO BID [facility] Last Admin: 06/14/17 08:03 Dose: 10 mg Furosemide (Lasix) 40 mg IVPUSH NOW ONE Stop: 06/14/17 11:38 Last Admin: 06/14/17 12:00 Dose: 40 mg Furosemide (Lasix) 40 mg IVPUSH ONETIME ONE Stop: 06/14/17 19:01 Last Admin: 06/14/17 18:18 Dose: 40 mg Sodium Chloride (Normal Saline) 1,000 mls @ 999 mls/hr IV STAT ONE Stop: 06/12/17 12:54 Last Admin: 06/12/17 12:15 Dose: 999 mls/hr Levofloxacin/Dextrose 750 mg/ (Premix) 150 mls @ 100 mls/hr IV ONETIME ONE Stop: 06/12/17 15:16 Last Admin: 06/12/17 14:15 Dose: 100 mls/hr Levofloxacin/Dextrose 750 mg/ (Premix) 150 mls @ 100 mls/hr IV Q24H [facility] Last Admin: 06/13/17 12:13 Dose: 100 mls/hr Sodium Chloride (Normal Saline) 500 mls @ 125 mls/hr IV .BOLUS ONE Stop: 06/14/17 15:38 Last Admin: 06/14/17 11:57 Dose: 125 mls/hr Levofloxacin (Levaquin) 750 mg PO DAILY ONE Stop: 06/14/17 13:01 Last Admin: 06/14/17 12:04 Dose: 750 mg Methylprednisolone Sodium Succinate (Solu-Medrol) 125 mg IVPUSH ONETIME ONE Stop: 06/12/17 11:55 Last Admin: 06/12/17 12:15 Dose: 125 mg Methylprednisolone Sodium Succinate (Solu-Medrol) 125 mg IV Q6H [facility] Last Admin: 06/13/17 12:13 Dose: 125 mg Nicotine (Habitrol) 21 mg TRDERM DAILY [facility] Last Admin: 06/12/17 16:12 Dose: Not Given - Exam General: Reports: Alert, Oriented, Cooperative, No Acute Distress Lungs: Reports: Decreased Breath Sounds, Crackles, Wheezing Cardiovascular: Reports: Regular Rate, Regular Rhythm Extremities: Normal Inspection, No Pedal Edema Neurological: Reports: No New Focal Deficit Psy/Mental Status: Reports: Alert, Normal Affect, Normal Mood *Q Meaningful Use (DIS) - VTE *Q VTE Criteria *Q: - Stroke *Q Stroke Criteria *Q: - AMI *Q AMI Criteria *Q:
[2017-06-15] MEDS ORDERED: Levofloxacin 250 MG Tab PO ONE (13:20)
== END 2017-06-15 13:45 | disposition home or self-care (01) | DRG 192 ==
LOC: MW.ED 11:46 → MW.MS 14:10
PROVIDERS: ADMIT Family Medicine; ATTEND Family Medicine
DX: J44.0 Chronic obstructive pulmonary disease with (acute) lower respiratory infection (principal); J44.9 Chronic obstructive pulmonary disease, unspecified; I25.2 Old myocardial infarction; F32.9 Major depressive disorder, single episode, unspecified; F41.9 Anxiety disorder, unspecified; J44.1 Chronic obstructive pulmonary disease with (acute) exacerbation; Z88.1 Allergy status to other antibiotic agents; J20.9 Acute bronchitis, unspecified; R09.02 Hypoxemia; E87.5 Hyperkalemia; I25.10 Atherosclerotic heart disease of native coronary artery without angina pectoris; I10 Essential (primary) hypertension; F17.210 Nicotine dependence, cigarettes, uncomplicated; Z95.5 Presence of coronary angioplasty implant and graft; Z79.02 Long term (current) use of antithrombotics/antiplatelets; Z79.82 Long term (current) use of aspirin; Z79.899 Other long term (current) drug therapy; E78.5 Hyperlipidemia, unspecified; Z88.8 Allergy status to other drugs, medicaments and biological substances
CPT/HCPCS: 36415; 71020; 80053; 83605; 85025; 87040 ×2; 87804 ×2; 94640; 99285; J2930; J7040; 80048; 84132; 85027; 87070; 87205; 99283; A9270-GY; J1200; J1644; J1940; J1956

== ENCOUNTER 2022-01-02 13:25 | Emergency (ER) | payer MEDICARE, BC ==
[2022-01-02 14:39] LABS: CARBON DIOXIDE,CO2 29.4 mmol/L (21.0-32.0); POTASSIUM,K 4.2 mmol/L (3.5-5.1)
[2022-01-02] MEDS: Furosemide 40 MG/4 ML VIAL IVPUSH ONE (16:31)
[2022-01-02 20:28] VITALS: BP 118/59; PULSE 65
== END 2022-01-02 20:10 ==
LOC: MW.ED 13:25 → MW.MS 15:17 → UNDOADMIN 15:17
DX: D64.9 Anemia, unspecified (principal); J44.9 Chronic obstructive pulmonary disease, unspecified; I25.2 Old myocardial infarction; Z79.82 Long term (current) use of aspirin; Z79.02 Long term (current) use of antithrombotics/antiplatelets; Z79.899 Other long term (current) drug therapy; Z88.1 Allergy status to other antibiotic agents; Z95.5 Presence of coronary angioplasty implant and graft; Z20.822 Contact with and (suspected) exposure to COVID-19
CPT/HCPCS: 36415; 36430; 80053; 83010; 83615; 84100; 85025; 85384; 85610; 86850; 86900; 86901; 86920; 93005; 96374; 99285; J1940; P9016; U0002

== ENCOUNTER 2023-09-15 09:49 | Emergency (ER) | payer MEDICARE, BC ==
[2023-09-15] MEDS: Sodium Chloride 0.9% 1,000 ML IV ONE (10:46)
[2023-09-15 10:58] LABS: HEMATOCRIT 36.6 % (42.0-52.0); HEMOGLOBIN 11.8 g/dL (14.0-18.0); MEAN CORPUSCULAR HEMOGLOBIN 27.8 pg (28.0-32.0); MEAN CORPUSCULAR HGB CONC 32.2 g/dL (32.0-36.0); MEAN CORPUSCULAR VOLUME 86.3 fL (83.0-99.0); MEAN PLATELET VOLUME 10.5 fL (9.4-12.4); PLATELET COUNT,PLT 190 K/uL (150-400); RED BLOOD CELL COUNT 4.24 M/uL (4.52-5.90); WHITE BLOOD CELL COUNT,WBC 19.38 K/uL (3.9-11.3)
[2023-09-15 11:01] LABS: APPEARANCE,URINE SLT CLOUDY; BILIRUBIN,URINE NEGATIVE (NEGATIVE); COLOR,URINE YELLOW; GLUCOSE,URINE NEGATIVE (NEGATIVE); KETONES,URINE TRACE mg/dL (NEGATIVE); LEUKOCYTE ESTERASE,URINE SMALL (NEGATIVE); NITRITE,URINE POSITIVE (NEGATIVE); OCCULT BLOOD,URINE TRACE-INTACT (NEGATIVE); PROTEIN,URINE 30 mg/dL (NEGATIVE); UROBILINOGEN,URINE 0.2 EU/dL (<2.0)
[2023-09-15 11:08] LABS: BACTERIA,URINE 3+ (NEGATIVE); EPITHELIAL CELLS,URINE OCCASIONAL (NONE-FEW); RBC,URINE 0-2 (0-2/HPF)
[2023-09-15 11:12] LABS: INR 1.13 (0.86-1.11)
[2023-09-15 11:19] LABS: LYMPHOCYTES ABSOLUTE MAN 0.78 K/uL (1.00-4.80); LYMPHOCYTES PERCENT MAN 4 % (24-44); MONOCYTES ABSOLUTE MAN 1.94 K/uL (0.00-0.80); MONOCYTES PERCENT MAN 10 % (0-8); SEG NEUTROPHILS ABSOLUTE MAN 16.67 K/uL (1.80-7.70); SEG NEUTROPHILS PERCENT MAN 86 % (41-71)
[2023-09-15 11:26] LABS: ALBUMIN 3.2 g/dL (3.4-5.0); BILIRUBIN TOTAL 0.5 mg/dL (0.2-1.0); CALCIUM 8.6 mg/dL (8.5-10.1); CARBON DIOXIDE,CO2 26.5 mmol/L (21.0-32.0); CREATININE 0.9 mg/dL (0.8-1.3); EST CRCL DRUG DOSING (CG) 72.83 mL/min; POTASSIUM,K 4.6 mmol/L (3.5-5.1); PROTEIN TOTAL,TP 6.4 g/dL (6.4-8.2)
[2023-09-15 11:29] LABS: LACTIC ACID 0.6 mmol/L (0.4-2.0)
[2023-09-15] MEDS: cefTRIAXone 2 GM in Sodium Chloride 0.9% 50 ML IV STA (11:52)
[2023-09-15] MEDS: Acetaminophen 325 MG Tab PO ONE (12:11)
[2023-09-15 13:04] VITALS: BP 101/59; PULSE 83
== END 2023-09-15 13:02 | disposition home or self-care (01) ==
LOC: MW.ED 09:49
DX: N39.0 Urinary tract infection, site not specified (principal); D72.829 Elevated white blood cell count, unspecified; J44.9 Chronic obstructive pulmonary disease, unspecified; I25.2 Old myocardial infarction; Z95.5 Presence of coronary angioplasty implant and graft; Z79.899 Other long term (current) drug therapy; Z75.8 Other problems related to medical facilities and other health care; Z88.8 Allergy status to other drugs, medicaments and biological substances
CPT/HCPCS: 36415; 80053; 81001; 83605; 85025; 85610; 87040; 87086; 87088; 87186; 96361; 96365; 99283; A9270; J0696; J3490; J7030